=== PATIENT | male | born 1940 | race Caucasian/White ===

== ENCOUNTER → 2017-04-04 12:19 | Outpatient (CLI) | payer MEDICARE, BC ==
[2017-04-04 13:01] LABS: BASOPHILS 0.5 % (0-2); EOSINOPHILS 2.7 % (0-7); HEMATOCRIT 47.9 % (42.0-54.0); HEMOGLOBIN 16.5 g/dL (13.5-17.5); IMMATURE GRANULOCYTES 0.3 % (0-5); LYMPHOCYTES 21.6 % (15-50); MCH 34.3 pg (26.0-34.0); MCHC 34.4 g/dL (31.0-37.0); MCV 99.6 fL (80.0-100.0); MEAN PLATELET VOLUME 10.4 fL (7.4-10.4); NEUTROPHILS 64.9 % (40-80); RBC 4.81 10x6/uL (4.20-6.10); RDW 12.2 % (11.5-14.5)
[2017-04-04 13:11] LABS: PLATELET COUNT 122 10x3/uL (130-400)
[2017-04-05 10:20] LABS: ANA REFLEX - DIRECT Negative (Negative)
[2017-04-05 22:09] LABS: CYCLIC CITRULL PEPTIDE IGG/IGA 13 units (0-19)
== END | disposition home or self-care (01) ==
LOC: D.LAB 12:19 → D.RAD 13:15
PROVIDERS: Internal Medicine Pulmonary Disease
DX: J84.9 Interstitial pulmonary disease, unspecified (principal)

== ENCOUNTER 2017-08-02 06:48 | Day surgery (SDC) | payer MEDICARE, BC ==
[~2017-08-02] VITALS: Ht 190.5 cm; Wt 78.2 kg
--- NOTE | ~2017-08-02 | OP ---
PATIENT NAME: ARIANA ESCOBAR JR MEDICAL RECORD: [id number] :41 LOCATION:[id number] ADMISSION DATE: SURGEON: FILEMON HEWITT MD DATE OF OPERATION: 08/02/2017 SURGEON: Filemon Hewitt MD ANESTHESIA: General anesthesia by Fernando Figueroa CRNA DIAGNOSES: Urinary retention, benign prostatic hypertrophy, possible bladder tumor on CT scan. PROCEDURES: Cystoscopy, GreenLight laser transurethral resection of the prostate, power 80 barreto, energy 7188 kilojoules, laser on time 1 minute 32 seconds. FINDINGS: Previous resection of the prostate. Some bladder neck contracture. Heavily trabeculated bladder with cellules and diverticula. However, no bladder tumors were seen. 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 He presented with urinary retention. I started him on finasteride and tamsulosin. He came to the office for a voiding trial, but he was unable to void and he had a postvoid residual of greater than 1 liter. We tried to teach himself intermittent catheterization, but he was unable to perform it. He therefore has an indwelling Sousa catheter. He had a TURP in [address] Moe Watson. He had gone to the Emergency Room in [place] when he was having abdominal pain, which turned out to be due to retention. A CT scan done at [place] showed a solitary left kidney. There is a left hydroureteronephrosis down to a massively distended bladder. This was before Sousa catheter was placed. On the posterior wall on the left side is some type of filling defect in the diverticulum. Today, he comes to have cystoscopy and possible bladder tumor resection. He also wanted to have a GreenLight laser TURP or bladder stricture incision in order to try to void again. HE IS ALLERGIC TO AZITHROMYCIN, JANUVIA, AND SINGULAIR. He was given Levaquin IV online affiliate marketing manager to the OR. DESCRIPTION OF PROCEDURE: The patient was given induction of general anesthesia. He was placed in the dorsal lithotomy position and prepped and draped. A 21-Arabic cystoscope with 30-degree lens was used for visualization. Penile urethra shows no strictures. Prostatic urethra shows signs of wide resection. There is some bladder neck stenosis. Going into the bladder, there was a heavily trabeculated bladder. Single ureteral orifices are seen on each side. There is some inflammation of the bladder from the indwelling Sousa catheter. There is some floating debris in the bladder, but I could not definitely see an obvious tumor. We then turned our attention to the bladder neck. We were able to pass through the bladder neck with our scope, so in theory, he should be able to void. 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 However, given that he wanted every possible opportunity to try to void on his own again, we decided to change to the laser resectoscope. The laser fiber was introduced. Resecting from the bladder neck to just proximal to the verumontanum, we opened up a wide channel at the level of bladder neck and also on the lateral lobes resecting what residual BPH there was. No bleeding was seen. At the end of the procedure, an 18-Arabic 3-way Sousa catheter was inserted into the bladder. The balloon was inflated with 30 cc of sterile water. I will have him come back to OPERATIVE REPORT [id number] ARIANA ESCOBAR JR the office tomorrow to take the catheter out for a voiding trial. TRANSINT:[id number] Voice Confirmation ID: [id number] DOCUMENT ID: [id number] FILEMON HEWITT MD at 1723 CC: [id number] DICTATION DATE: 08/02/17 1428 LAW TUTOR: 08/02/17 1500 REG [facility] [address] [place] [address]
[2017-08-02 07:18] LABS: BASOPHILS 0.4 % (0-2); EOSINOPHILS 1.7 % (0-7); HEMATOCRIT 44.2 % (42.0-54.0); HEMOGLOBIN 15.1 g/dL (13.5-17.5); IMMATURE GRANULOCYTES 0.3 % (0-5); LYMPHOCYTES 15.5 % (15-50); MCH 34.4 pg (26.0-34.0); MCHC 34.2 g/dL (31.0-37.0); MCV 100.7 fL (80.0-100.0); MEAN PLATELET VOLUME 9.7 fL (7.4-10.4); MONOCYTES 11.7 % (2-11); NEUTROPHILS 70.4 % (40-80); RBC 4.39 10x6/uL (4.20-6.10); RDW 12.7 % (11.5-14.5); WBC 6.9 10x3/uL (4.8-10.8)
[2017-08-02 07:19] LABS: PLATELET COUNT 173 10x3/uL (130-400)
[2017-08-02 07:41] LABS: ANION GAP 12.1 mmol/L (8-16); CALCIUM 9.3 mg/dL (8.5-10.1); CARBON DIOXIDE 29.5 mmol/L (21.0-32.0); CREATININE - SERUM 1.3 mg/dL (0.6-1.3); POTASSIUM - SERUM 4.6 mmol/L (3.5-5.1)
[2017-08-02] MEDS ORDERED: AMOXICILLIN500 M1 PO (08:01)
[2017-08-02] MEDS ORDERED: ZOCOR40 MG PO (08:01)
[2017-08-02] MEDS ORDERED: PROSCAR5 MG PO (08:02)
[2017-08-02] MEDS ORDERED: GLIMEPIRIDE4 MG PO (08:02)
[2017-08-02] MEDS ORDERED: FLOMAX0.4 MG PO (08:03)
[2017-08-02 08:31] VITALS: BP 133/72; BMI 21.6
[2017-08-02 20:00] VITALS: BP 162/78
[2017-08-03 00:11] VITALS: BP 133/74
[2017-08-03 03:25] VITALS: BP 133/74; Ht 190.5 cm; Wt 78.2 kg
[2017-08-03 04:07] VITALS: BP 138/84
[2017-08-03 09:07] VITALS: BP 138/71
[2017-08-03 12:33] VITALS: BP 129/73
== END 2017-08-03 15:30 | disposition home or self-care (01) ==
LOC: D.OPS 06:48 → D.MS 06:48 → D.OPS 09:15 → D.PAN 12:15 → D.MS 16:00 → D.OPS 08-03 15:30
PROVIDERS: Anesthesiology
DX: N40.1 Benign prostatic hyperplasia with lower urinary tract symptoms (principal); R33.8 Other retention of urine; N32.0 Bladder-neck obstruction; N32.89 Other specified disorders of bladder; N32.3 Diverticulum of bladder; N13.30 Unspecified hydronephrosis; Z90.5 Acquired absence of kidney; Z88.1 Allergy status to other antibiotic agents; Z88.8 Allergy status to other drugs, medicaments and biological substances; Z01.812 Encounter for preprocedural laboratory examination

== ENCOUNTER → 2017-10-13 13:30 | Outpatient (CLI) | payer MEDICARE, BC ==
[2017-08-03 03:25] VITALS: BMI 21.5
[~2017-10-13 13:30] MED LIST: AMOXICILLIN500 M1 PO; FLOMAX0.4 MG PO; GLIMEPIRIDE4 MG PO; PROSCAR5 MG PO; ZOCOR40 MG PO
== END | disposition home or self-care (01) ==
LOC: D.RT 13:30
DX: R06.09 Other forms of dyspnea (principal); J84.9 Interstitial pulmonary disease, unspecified

== ENCOUNTER → 2018-11-23 13:24 | Outpatient (CLI) | payer MEDICARE, BC ==
[2017-08-03 03:25] VITALS: BMI 21.5
[2018-11-23 16:04] LABS: ALBUMIN 3.3 g/dL (3.4-5.0); BILIRUBIN - DIRECT 0.16 mg/dL (0.00-0.30); BILIRUBIN - INDIRECT 0.5 mg/dL (0.00-1.00); BILIRUBIN - TOTAL 0.66 mg/dL (0.2-1.3); PROTEIN - SERUM 7.5 g/dL (6.4-8.2)
== END | disposition home or self-care (01) ==
LOC: D.RT 07-19 09:00 → D.RAD 07-19 10:00 → D.LAB 07-19 10:15 → D.RT 07-19 13:00 → D.RAD 07-19 14:00 → D.LAB 07-19 14:15 → D.RT 08-03 13:00 → D.RAD 08-03 14:00 → D.LAB 08-03 14:15
PROVIDERS: ATTEND Internal Medicine Pulmonary Disease
DX: J84.112 Idiopathic pulmonary fibrosis (principal)